=== PATIENT | female | born 1995 | race African-American/Black ===

== ENCOUNTER 2023-11-01 10:53 | Outpatient (REF) | payer MEDICAID, SELFPAY ==
[2023-11-01 11:41] LABS: MANUAL DIFF FLAG NO
[2023-11-01 11:57] LABS: Basophils Percent Auto 0.7 % (0-2); Eosinophils Absolute Auto 0.1 X10*3/uL (0.0-0.4); Eosinophils Percent Auto 2.2 % (0-4); Hemoglobin 12.8 g/dl (12.0-16.0); Lymphocytes Absolute Auto 1.5 X10*3/uL (1.2-4.9); Lymphocytes Percent Auto 33.4 % (20-40); Mean Corpuscular HGB Conc 32.8 g/dl (31.0-35.0); Mean Corpuscular Hemoglobin 27.5 pg (27.0-33.0); Mean Corpuscular Volume 83.7 fL (80.0-98.0); Mean Platelet Volume 9.9 fL (9.4-12.3); Monocytes Absolute Auto 0.6 X10*3/uL (0.1-1.2); Monocytes Percent Auto 12.1 % (2-11); Neutrophils Absolute Auto 2.4 x10*3/uL (2.0-8.3); Neutrophils Percent Auto 51.6 % (45-73); Platelet Count 405 X10*3/uL (160-400); Red Blood Count 4.66 X10*6/uL (4.20-5.50); Red Cell Distribution Width 13.2 % (11.0-16.0); White Blood Count 4.6 X10*3/uL (4.8-10.8)
[2023-11-01 12:24] LABS: Estimated Average Glucose 103 mg/dL; Hemoglobin A1c % 5.2 % (<6.0)
[2023-11-01 12:49] LABS: Alanine Aminotransferase 9 U/L (0-31); Albumin Level 4.1 g/dL (3.5-5.0); Alkaline Phosphatase 73 U/L (39-117); Anion Gap 9 (12-20); Aspartate Amino Transferase 17 U/L (5-31); Bilirubin Total 0.4 mg/dL (0.0-1.0); Blood Urea Nitrogen 9 mg/dL (9-16); Calcium 8.7 mg/dL (8.4-10.2); Carbon Dioxide 26 mmol/L (22-29); Chloride 108 mmol/L (96-108); Cholesterol 119 mg/dL (<200); Estimated Glomerular Filt Rate > 60; Glucose Random 99 mg/dL (60-115); HDL Cholesterol 42 mg/dL (>40); LDL Cholesterol Calculated 70 mg/dL (<100); Sodium 139 mmol/L (135-145); Total Protein 7.4 g/dL (6.5-8.0); Triglycerides 36 mg/dL (<150)
[2023-11-01 13:09] LABS: TSH reflex Free T4 0.57 uIU/mL (0.32-4.0)
[2023-11-02 05:09] LABS: HBS Num1 0.66 mIU/mL (0-7.99); HBc Num1 6.26 S/CO (0.00-0.79); ~Hepatitis B Surface Antibody NONREACTIVE (Nonreactive)
[2023-11-02 06:24] LABS: HBc Num2 6.25 S/CO; HBc Num3 6.42 S/CO; HBsAGNum2 Reactive; HBsAGNum3 Reactive; Hepatitis B Core Antibody Reactive (Nonreactive); Hepatitis B Surface Antigen Retest CNFM (Negative)
[2023-11-03 07:04] LABS: Hepatitis B Core Antibody IgM NON-REACTIVE (NON-REACTIVE)
== END 2023-11-01 10:54 | disposition home or self-care (01) ==
LOC: HO.HHCL 10:53
PROVIDERS: Visit Provider General Practice
DX: E66.3 Overweight (principal); B18.1 Chronic viral hepatitis B without delta-agent
CPT/HCPCS: 36415; 80053; 80061; 83036; 84443; 85025; 86704; 86705; 86706; 87340

== ENCOUNTER 2024-07-12 15:35 | Outpatient (REF) | payer MEDICAID, SELFPAY ==
--- OUTSIDE RECORDS SUMMARY | 2024-07-12 16:01 | XMS_ITS | Clinical Summary ---
Author Organization [facility] Address [address] [place] [address] Care Team Providers Care Banking Teacher Name Role Phone Unavailable Primary Care Provider Unavailabl e Source Comments PLEASE NOTE, if this patient is a minor, it may be UNLAWFUL to discuss sensitive information that is contained in these records (such as FAMILY PLANNING, MENTAL HEALTH or SUBSTANCE ABUSE) with the minor patient's parent or other person without the patient's specific authorization.[facility] Immunizations Immunization Administration Dates Next Due HEP B, PED/ADOL 11/15/2000,05/24/2000,01/17/2000 Influenza (FLUBLOK),recombinant,injectable,preservati ve Free 12/08/2023 MMR (MMR II/Priorix) 05/24/2000,01/17/2000 Moderna COVID-19 Vaccine, re d cap blue label, 12+ Primary Series 05/29/2021,08/08/2020,07/11/2020 TDAP 04/03/2023,01/03/2008 Varicella, Live Vaccine 10/28/2009,01/17/2000 Social History Tobacco Use Types Packs/Day Years Used Date Smoking Tobacco: Never Assessed Social Connections Answer Date Recorded Connectedness 0 12/08/2023 Financial Resource Strain Answer Date R ecorded Financial Resource Strain 0 2023 Stress Answer Date Recorded Stress 0 12/08/2023 Physical Activity Answer Date Recorded Physical Activity 0 12/08/2023 Food Insecurity Answer Date Recorded Food 0 12/14/2023 Transportation Needs Answer Date Record ed Transportation 0 12/08/2023 Housing Stability Answer Date Recorded Housing 0 12/08/2023 Safety and Environment Answer Date Augusto rded Safety 0 12/08/2023 Utilities Answer Date Recorded Utilities 0 12/08/2023 Employment Answer Date Recorded Stress 0 12/08/2023 Comments Unknown Sex and Gender Information Value Date Recorded Sex Assigned at Female 12/08/2023 8:07 AM PDT Legal Sex Female 8:31 AM PST Gender Identity Female 12/08/2023 8:07 AM PDT Sexual Orientation Choose not to disclose 2023 8:07 AM PDT Plan of Treatment Health Maintenance Due Date Last Done Comments Anxiety Screening 1993 HPV Screening 1993 Hepatitis C Screening 1993 Pap + HPV 1993 Tobacco Screening 1993 HIV Screening 2008 Relationship Safety Screening/Counseling 2008 Hypertension Screening (#1) 2011 Cervical Cancer Screening 2014 Pap Smear 2014 Miv-HHBAC-30 ( season) 2023 05/29/2021, 08/08/2020, 07/11/2020 Alcohol and Drug Screen 2024 Depression Annual Screen 2024 Imm-DTaP/Tdap/Td (5 - Td or Tdap) 04/03/2033 04/03/2023, 01/03/2008, 11/21/2000, Additional history exists Imm-Hepatitis B Completed 11/15/2000, 09/2000, 01/17/2000 Imm-Influenza Completed 12/08/2023, 02/17, 12/02/2019, Additional history exists Cervical Ablation/Cold-Knife Conization Discontinued Cervical Cryotherapy Discontinued Colposcopy Discontinued Endometrial Biopsy Discontinued Excision/Leep Discontinued HPV Genotyping Discontinued Vaginal Pap Discontinued Vulvoscopy Discontinued Insurance HE[employer] SAF[employer]Y NET
--- OUTSIDE RECORDS SUMMARY | 2024-07-12 16:01 | XMS_ITS | Clinical Summary ---
Author Organization [facility] Address [address] [place] [address] Care Team Providers Care Database Administration Associate Name Role Phone Unavailable Primary Care Provider Unavailabl e Social History Tobacco Use Types Packs/Day Years Used Date Smoking Tobacco: Never Assessed Comments Unknown Sex and Gender Information Value Date Recorded Sex Assigned at Not on file Legal Sex Female 8:10 PM EST Gender Identity Not on file Sexual Orientation Not on file Plan of Treatment Health Maintenance Due Date Last Done Comments DTaP,Tdap,and Td Vaccines (1 - Tdap) 2012 Hepatitis B Vaccines (1 of 3 - 19+ 3-dose series) 2012 Cervical Cancer Screening: P ap Smear 2014 COVID-19 Vaccine ( - 2023-2 5 season) 2023 Influenza Vaccine (Season Ended) 2024 HIB Vaccines Aged Out No longer eligi ble based on patient's age to complete this topic HPV Vaccines Aged Out No longer eligi ble based on patient's age to complete this topic Hepatitis A Vaccines Aged Out No long er eligible based on patient's age to complete this topic IPV Vaccines Aged Out No longer eligi ble based on patient's age to complete this topic MMR Vaccines Aged Out No longer eligi ble based on patient's age to complete this topic Meningococcal ACWY Vaccine Aged Out N o longer eligible based on patient's age to complete this topic Meningococcal B Vaccine Aged Out No l onger eligible based on patient's age to complete this topic Pneumococcal Vaccine: Pediat rics (0 to 5 Years) and At-Risk Patients (6 to 64 Years) Aged Out No longer eligible b ased on patient's age to complete this topic RSV Immunization Patients Un rashmi 20 months Aged Out No longer eligible b ased on patient's age to complete this topic Varicella Vaccines Aged Out No longer eligible based on patient's age to complete this topic
--- OUTSIDE RECORDS SUMMARY | 2024-07-12 16:01 | XMS_ITS | Encounter Summary ---
Author Organization [email or web address] Address [address] [facility] [address] [place] [address] Care Team Providers Care Groundman/Lineman Name Role Phone Natalia Silva MD Primary Care Provider [phone] Encounter Details Date Type Department Care Team (Latest Contact Info) Description 07/12/2024 Travel Social History Tobacco Use Types Packs/Day Years Used Date Smoking Tobacco: Never Passive Smoke Exposure: Never Smokeless Tobacco: Never Alcohol Use Standard Drinks/Week Comments Never 0 (1 standard drink = 0.6 oz pur e alcohol) Depression Answer Date Recorded Patient Health Questionnaire-9 Score 0 11/01/2023 Patient Health Questionnaire-9 Score 0 11/01/2023 Last PHQ-9: Questionnaire Data Not on file 0 11/01/2023 Housing Stability Answer Date Recorded What is your housing situation today? I have hollandglenroy carrasco 11/01/[address] you li ve. Do you have problems with any of the following? None of the above 11/01/2023 Food Insecurity Answer Date Recorded Within the past 12 months, y ou worried that your food would run out before you got money to buy more: Never True 11/01/2023 Within the past 12 months,th e food you bought just didn't last and you didn't have enough money to get more: Never True Transportation Answer Date Recorded In the past 12 months, has l ack of transportation kept you from medical appts, meetings, work or from getting things needed for daily living? Yes, it has kept me from medical appointments or getting medications. 11/01/2023 Utilities Answer Date Recorded In the past 12 months, has t he electric, gas, oil or water company threatened to shut off services in your home? No 11/01/2023 Depression Answer Date Recorded Patient Health Questionnaire-2 Score 0 11/01/2023 Internet Access Answer Date Recorded Internet Access Q1 Yes 11/20/2023 Internet Access Q2 Not on file 11/20/2023 Comments Unknown Sex and Gender Information Value Date Recorded Sex Assigned at Female 01/17/2022 10:16 AM EDT Legal Sex Female 10:16 AM EDT Gender Identity Female 01/17/2022 10:16 AM EDT Sexual Orientation Straight 01/17/2022 10 :16 AM EDT documented as of this encounter Plan of Treatment Upcoming Encounters Date Type Department Care Team (Late st Contact Info) Description 11/29/2024 1:00 PM EDT Office Visit [facility] ADULT DENTAL [address] [place] [address] GilShelbi [address] [place] [address] documented as of this encounter Visit Diagnoses Not on filedocumented in this encounter Additional Health Concerns Assessment Noted Time PHQ-9 Depression Total Score: 0 11/01/19 24 10:24 AM EDT documented as of this encounter Care Teams Groundman/Lineman Relationship Specialty Start Date End Date Natalia Silva MD [address] [place] [address] PCP - General Family Medicine 11/01/23 documented as of this encounter
--- OUTSIDE RECORDS SUMMARY | 2024-07-12 16:01 | XMS_ITS | Encounter Summary ---
Author Organization [employer] Address [address] [facility] 7 [place] [address] Care Team Providers Care Associate Data Scientist Name Role Phone Natalia Silva MD Primary Care Provider [phone] Reason for Visit * Reason Onset Date Comments Appointment 12/11/2023 Encounter Details Date Type Department Care Team (Late st Contact Info) Description 12/11/[address] [facility] [address] [place] [address] Gena Rothman DMD Appointment Social History Tobacco Use Types Packs/Day Years Used Date Smoking Tobacco: Never Smokeless Tobacco: Never Alcohol Use Standard Drinks/Week Comments Never 0 (1 standard drink = 0.6 oz pur e alcohol) Depression Answer Date Recorded Patient Health Questionnaire-9 Score 0 11/01/2023 Patient Health Questionnaire-9 Score 0 11/01/2023 Last PHQ-9: Questionnaire Data Not on file 0 11/01/2023 Housing Stability Answer Date Recorded What is your housing situation today? I have holland carrasco 11/01/[address] you [...] AM EDT documented as of this encounter Miscellaneous Notes * Telephone Encounter - Papito Vieyra - 12/11/2023 11:40 AM EDT Patient will like to be put on the cancellation list for this week and if by any chance someone cancels for Monday because ts her only day off. CS documented in this encounter Plan of Treatment Upcoming Encounters Date Type Department Care Team (Late st Contact Info) Description 11/29/2024 1:00 PM EDT Office Visit [facility] [address] [place] [address] GilHermanShelbi [address] [place] [address] documented as of this encounter Visit Diagnoses Not on filedocumented in this encounter Additional Health Concerns Assessment Noted Time PHQ-9 Depression Total Score: 0 11/01/19 24 10:24 AM EDT documented as of this encounter Care Teams Associate Data Scientist Relationship Specialty Start Date End Date Natalia Silva MD [address] [place] [address] PCP - General Family Medicine 11/01/23 documented as of this encounter
--- OUTSIDE RECORDS SUMMARY | 2024-07-12 16:01 | XMS_ITS | Clinical Summary ---
Author Organization [employer] Address [address] [place] [address] 7 [place] [address] Care Team Providers Care Manufacturing Management Associate Name Role Phone Natalia Silva MD Primary Care Provider [phone] Allergies No known active allergies Medications acetaminophen (Tylenol) 500 MG tablet Take 1 tablet (500 mg) by mouth every 6 (six) hours if needed for mild pain for up to 20 doses. 20 tablet 4 Active ibuprofen 600 MG tablet Take 1 tablet (600 mg) by mouth every 6 (six) hours if needed for mild pain for up to 20 doses. 20 tablet 4 Active propranolol (Inderal) 10 MG tablet TAKE 1 TABLET BY MOUTH IF NEEDED EACH DAY 30-60 MINUTES PRIOR TO ANXIETY-PROVOKI NG EVENTS 90 tablet 5 Active carbamide peroxide (Debrox) 6.5 % otic solution Administer 5-10 drops into affected ear(s) 2 times daily for 4 days. 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 Chronic type B viral hepatitis 07/09/2015 Encounters Date Type Department Care Team Description 07/12/2024 3:30 PM EDT Office Visit [facility] [address] [place] [address] Natalia Silva MD Dietary counseling; Exercise counseling; Overweight; Chronic type B viral hepatitis (CMS/HCC) 07/12/2024 Travel 07/10/2024 Telephone [facility] [address] [place] [address] Natalia Silva MD Chart Prep 07/03/2024 Patient Outreach [facility] [address] [place] [address] Natalia Silva MD Pre-visit Planning ((Unable to reach for PVP screening, LVM)) 05/24/2024 2:00 PM EST Office Visit [facility] ADULT DENTAL [address] [place], [place] [phone] Shelbi Cordero Dental calculus (Primary Dx); Gingival bleeding; Normal oral exam 05/09/2024 Telephone [facility] [address] [place], [place] [phone] Natalia Silva MD recall from Last 3 Months Immunizations Name Administration Dates Next Due HPV, Quadrivalent 02/08/2008,02/13/2007,12/26/19 07 Hep B, Adolescent or Pediatric 11/15/2000,2000,01/17/2000 IPV 11/15/2000, 1,05/24/2000,01/16 Influenza Injectable Quadriv alant Preservative Free IIV4 MDCK 12/02/2019,05/02/2019 Influenza injectable quadriv alent preservative free 03/04/2023 Influenza, live, intranasal 01/21/2013 MMR 05/24/2000,01/17/2000 Meningococcal MCV4P ACYW-135 01/21/2013 TD (adult), 2 Lf tetanus tox oid, preservative free, adsorbed 11/21/2000,05/24/2000 Tdap 04/03/2023,01/03/2008 Varicella 10/28/2009,01/17/2000 Social History Tobacco Use Types Packs/Day Years Used Date Smoking Tobacco: Never Passive Smoke Exposure: Never Smokeless Tobacco: Never Tobacco Cessation:Counseling Given: Not Answered Alcohol Use Standard Drinks/Week Comments Never 0 [...] Orientation Straight 01/17/2022 10 :16 AM EDT Last Filed Vital Signs Vital Sign Reading Time Taken Comments Blood Pressure 121/78 07/12/2024 3:10 PM EDT Pulse 72 07/12/2024 3:10 PM EDT Temperature 37 ??C (98.6 ??F) 07/12/2024 3:10 PM EDT Respiratory Rate 20 07/12/2024 3:10 PM EDT Oxygen Saturation 97% 11/01/2023 10: 22 AM EDT Inhaled Oxygen Concentration - - Weight 75.2 kg (165 lb 12.8 oz) 07/12/2024 3:10 PM EDT Height 167.6 cm (5' 6 ) 07/12/2024 3:10 PM EDT Body Mass Index 26.76 07/12/2024 3:10 PM EDT Plan of Treatment Upcoming Encounters Date Type Department Care Team (Late st Contact Info) Description 11/29/2024 1:00 PM EDT Office Visit [facility] ADULT DENTAL [address] [place] [address] Shelbi Cordero [address] [place] [address] Health Maintenance Due Date Last Done Comments HIV Screening 1993 Family Planning (PISQ) 2008 Hepatitis C Screening 2011 Hepatitis A Vaccines (1 of 2 - Risk 2-dose series) 2012 Pneumococcal Vaccine: Pediatrics (0 to 5 Years) and At-Risk Patients (6 to 49) Years) (1 of 2 - PCV) 2012 Pap Smear 2014 Cervical Cancer Screening 2023 HPV/Cotest 2023 COVID-19 Vaccine ( season) 2023 05/29/2021, 08/08/2020, 07/11/2020 Alcohol/Substance Use Screening 10/31/2024 11/01/2023 Depression Screening 10/31/2024 11/01/2023, 11/01/19 24 SDOH Screening 10/31/2024 11/01/2023 Dental Oral Exam 11/25/2024 05/24/2024 Dental Prophylaxis 11/25/2024 05/24/2024, 04/29/2022 Tobacco Screening 05/24/2025 05/24/2024 Dental X-Ray: Bitewings 05/25/2025 05/24/2024, 04/29 Dental X-Ray: Full Mouth 05/26/2027 05/24/2024 DTaP/Tdap/Td Vaccines (5 - Td or Tdap) 04/03/2033 04/03/2023, 01/03/2008, 11/21/2000, Additional history exists Zoster Vaccines (1 of 2) 2043 RSV Patients and Patients Aged 60 years or older (1 - 1-dose 75+ series) 2068 Hepatitis B Vaccines Completed 11/15/2000, 05/24/2000, 01/17/2000 IPV Vaccines Completed 11/15/2000, 09/18, 05/24/2000, Additional history exists HPV Vaccines Completed 02/08/2008, 01/19, 12/25/2006 Meningococcal Vaccine Aged Out 01/21/2013 No maría vero eligible based on patient's age to complete this topic Influenza Vaccine Completed 12/08/2023, , 12/02/2019, Additional history exists HIB Vaccines Aged Out No longer eligi ble based on patient's age to complete this topic RSV under 20 months Aged Out No longe r eligible based on patient's age to complete this topic Rotavirus Vaccines Aged Out No longer eligible based on patient's age to complete this topic Procedures Procedure Name Priority Date/Time Associated Diagnosis Comments PERIODIC ORAL EVALUATION - ESTABLISHED PATIENT Routine 05/24/2024 2:00 PM EST CASE PRESENTATION, DETAILED AND EXTENSIVE TREATMENT PLANNING Routine 05/24/2024 2:00 PM EST Dental calculus Gingival bleeding ORAL HYGIENE INSTRUCTIONS Routine 05/24/2024 2:00 PM EST Dental calculus Gingival bleeding PROPHYLAXIS - ADULT Routine 05/24/2024 2 :00 PM EST Dental calculus Gingival bleeding INTRAORAL - COMPLETE SERIES OF RADIOGRAPHIC IMAGES Routine 05/24/2024 2:00 PM EST Dental calculus Gingival bleeding 31 O COMPOSITE FILLING Routine 12:00 AM EST 30 O AMALGAM FILLING Routine 05/24/2024 12:00 AM EST from Last 3 Months Insurance HSN FULL DENTAL - HSN PARTIAL (MEDICAID) Care Teams Manufacturing Management Associate Relationship Specialty Start Date End Date Natalia Silva MD [address] [place] [id number] PCP - General Family Medicine 11/01/23
--- OUTSIDE RECORDS SUMMARY | 2024-07-12 16:01 | XMS_ITS | Encounter Summary ---
Author Organization [employer] Address [address] [facility] 7 [place] [address] Care Team Providers Care Zipper Machine Operator Name Role Phone Natalia Silva MD Primary Care Provider [phone] Encounter Details Date Type Department Care Team (Late st Contact Info) Description 07/12/2024 3:30 PM EDT Office Visit [facility] [address] [place], [place] [phone] Natalia Silva MD [address] [place] [address] Dietary counseling; Exercise counseling; Overweight; Chronic type B viral hepatitis (CMS/HCC) Social History Tobacco Use Types Packs/Day Years [...] AM EDT documented as of this encounter Last Filed Vital Signs Vital Sign Reading Time Taken Comments Blood Pressure 121/78 07/12/2024 3:10 PM EDT Pulse 72 07/12/2024 3:10 PM EDT Temperature 37 ??C (98.6 ??F) 07/12/2024 3:10 PM EDT Respiratory Rate 20 07/12/2024 3:10 PM EDT Oxygen Saturation - - Inhaled Oxygen Concentration - - Weight 75.2 kg (165 lb 12.8 oz) 07/12/2024 3:10 PM EDT Height 167.6 cm (5' 6 ) 07/12/2024 3:10 PM EDT Body Mass Index 26.76 07/12/2024 3:10 PM EDT documented in this encounter Plan of Treatment Upcoming Encounters Date Type Department Care Team (Late st Contact Info) Description 11/29/2024 1:00 PM EDT Office Visit [facility] ADULT DENT[facility] [address] [place], [place] [phone] Gil, Shelbi [address] [place] [address] Scheduled Orders Name Type Priority Associated Diagnoses Orde r Schedule TSH W/Reflex to FT4 Lab Routine Overweight Expected: 07/12/2024 (Approximate), Expires: 07/12/2025 CBC auto differential Lab Routine Overweight Expected: 07/12/2024 (Approximate), Expires: 07/12/2025 documented as of this encounter Visit Diagnoses Diagnosis Dietary counseling Dietary surveillance and counseling Exercise counseling Overweight Chronic type B viral hepatitis (CMS/HCC) Viral hepatitis B without mention of hepatic coma, chronic, without mention of hepatitis delta documented in this encounter Additional Health Concerns Assessment Noted Time PHQ-9 Depression Total Score: 0 11/01/19 24 10:24 AM EDT documented as of this encounter Care Teams Zipper Machine Operator Relationship Specialty Start Date End Date Natalia Silva MD [address] [place] [address] PCP - General Family Medicine 11/01/23 documented as of this encounter
--- OUTSIDE RECORDS SUMMARY | 2024-07-12 16:01 | XMS_ITS | Encounter Summary ---
Author Organization [employer] Address [address] [facility] 7 [place] [address] Care Team Providers Care Egg Separator Name Role Phone Natalia Silva MD Primary Care Provider [phone] Reason for Visit * Reason Onset Date Comments Chart Prep 07/10/2024 Encounter Details Date Type Department Care Team ([facility] st Contact Info) Description 07/10/2024 Telephone [facility] [address] [place], [place] [phone] Natalia Silva MD [address] [place] [address] Chart Prep Social History Tobacco Use Types Packs/Day Years [...] encounter Miscellaneous Notes * Telephone Encounter - Katelyn Bruno [place] - 07/10/2024 1:44 PM EDT Chart Prep Labs: done Images: not applicable Referrals: not applicable Vaccines due: yes Screenings: pap smear Overdue care gaps: WEI-7, Disability screen, and Tobacco documented in this encounter Plan of Treatment Upcoming Encounters Date Type Department Care Team (Late st Contact Info) Description 11/29/2024 1:00 PM EDT Office Visit [facility] ADULT DENTAL [address] [place] [address] Gil, Shelbi [address] [place] [address] documented as of this encounter Visit Diagnoses Not on filedocumented in this encounter Additional Health Concerns Assessment Noted Time PHQ-9 Depression Total Score: 0 11/01/19 10:24 AM EDT documented as of this encounter Care Teams Egg Separator Relationship Specialty Start Date End Date Natalia Silva MD [address] [place] [address] PCP - General Family Medicine 11/01/23 documented as of this encounter
[2024-07-12 16:13] LABS: MANUAL DIFF FLAG NO
[2024-07-12 16:18] LABS: Basophils Percent Auto 0.6 % (0-2); Eosinophils Absolute Auto 0.1 X10*3/uL (0.0-0.4); Eosinophils Percent Auto 0.7 % (0-4); Hematocrit 38.5 % (37.0-47.0); Hemoglobin 12.8 g/dl (12.0-16.0); Imm Gran Abs Auto 0.02 X10*3/uL (0.00-0.03); Imm Gran Pct Auto 0.3 % (0.0-0.4); Lymphocytes Absolute Auto 1.6 X10*3/uL (1.2-4.9); Lymphocytes Percent Auto 22.1 % (20-40); Mean Corpuscular HGB Conc 33.2 g/dl (31.0-35.0); Mean Corpuscular Hemoglobin 28.8 pg (27.0-33.0); Mean Corpuscular Volume 86.5 fL (80.0-98.0); Mean Platelet Volume 9.7 fL (9.4-12.3); Monocytes Absolute Auto 0.7 X10*3/uL (0.1-1.2); Monocytes Percent Auto 9.5 % (2-11); Neutrophils Absolute Auto 4.7 x10*3/uL (2.0-8.3); Neutrophils Percent Auto 66.8 % (45-73); Platelet Count 388 X10*3/uL (160-400); Red Blood Count 4.45 X10*6/uL (4.20-5.50); Red Cell Distribution Width 12.2 % (11.0-16.0)
[2024-07-12 17:03] LABS: TSH reflex Free T4 0.58 uIU/mL (0.32-4.0)
== END 2024-07-12 15:36 | disposition home or self-care (01) ==
LOC: HO.HHCL 15:35
PROVIDERS: Visit Provider General Practice
DX: E66.3 Overweight (principal)
CPT/HCPCS: 36415; 84443; 85025